=== PATIENT | male | born 1970 | race Caucasian/White ===

== ENCOUNTER 2017-06-29 13:55 | Emergency (ER) | payer OTHER ==
[~2017-06-29] VITALS: Ht 162.6 cm; Wt 59.0 kg
[~2017-06-29 13:55] MED LIST: APRESOLINE50 MG PO; ASPIR-LOW81 MG PO; COUMADIN5 MG PO; COUMADIN7.5 MG PO; GABAPENTIN300 MG PO; LANTUS 10100 UNITS/ SC; LEVEMIR FL100 UNIT/1 SC; LISINOPRIL20 MG PO; LOVENOX60 MG/0.6 SC; NOVOLOG 10100 UNITS/ SC; NOVOLOG MI100 UNIT/4 SC; PRAVASTATIN SOD40 MG PO
[2017-06-29 15:37] VITALS: BP 121/90
== END 2017-06-29 15:38 | disposition left against medical advice (07) ==
LOC: EME 13:55
DX: S91.201A Unspecified open wound of right great toe with damage to nail, initial encounter (principal); W22.8XXA Striking against or struck by other objects, initial encounter; I96 Gangrene, not elsewhere classified; R45.1 Restlessness and agitation; R30.0 Dysuria; E11.9 Type 2 diabetes mellitus without complications; I10 Essential (primary) hypertension; Z79.01 Long term (current) use of anticoagulants; Z53.20 Procedure and treatment not carried out because of patient's decision for unspecified reasons; F17.200 Nicotine dependence, unspecified, uncomplicated
CPT/HCPCS: 99281; 99284

== ENCOUNTER 2017-07-04 11:53 | Inpatient (IN) | payer OTHER ==
[~2017-07-04] VITALS: Ht 162.6 cm; Wt 59.1 kg
[2017-07-04 12:32] LABS: POINT-OF-CARE METER ID UU13113702
[2017-07-04 12:42] LABS: BASOPHIL COUNT 0.1 K/uL (0-0.1); EOSINOPHIL COUNT 0.3 K/uL (0-0.3); HEMATOCRIT 50.9 % (38.0-50.0); IMMATURE GRANULOCYTE (%) 0.4 % (0.0-0.7); IMMATURE GRANULOCYTE COUNT 0.1 K/uL; INSTRUMENT ABS NEUTROPHIL CT 9.8 K/uL; LYMPHOCYTE COUNT 2.5 K/uL (1.0-2.8); MCH 30.4 PG (29.0-34.0); MCHC 33.4 G/DL (30.0-36.0); MCV 91.1 FL (86-99); MEAN PLAT.VOLUME 10.3 uM^3 (9.0-12.4); MONOCYTE (%) 7.4 % (3-12); NEUTROPHIL (%) 71.3 % (45-76); NEUTROPHIL COUNT 9.8 K/uL (1.8-6.4); PLATELET COUNT 433 K/uL (156-360); RBC DIS.WIDTH-CV 12.2 % (11.8-14.6); RBC DIS.WIDTH-SD 40.3 % (39-53); RED BLOOD COUNT 5.59 M/uL (4.00-5.50); WHITE BLOOD COUNT 13.8 K/uL (4.1-10.2)
[2017-07-04 12:49] LABS: CHLORIDE 101 mEq/L (99-109); POTASSIUM 4.6 mEq/L (3.7-5.4); SODIUM 139 mEq/L (136-147)
[2017-07-04 12:51] LABS: GLUCOSE 213 mg/dL (70-99)
[2017-07-04 12:53] LABS: ANION GAP 15 MEQ/L (2-14); TOTAL BILIRUBIN 0.6 mg/dL (0.0-1.0)
[2017-07-04 12:55] LABS: ALKALINE PHOSPHATASE 136 IU/L (3-129); GFR ESTIMATE (CALCULATED) 49 mL/min/
[2017-07-04 12:56] LABS: UREA NITROGEN (BUN) 28 mg/dL (9-23)
[2017-07-04] MEDS ORDERED: COUMADIN1 MG PO (14:34)
[2017-07-04] MEDS ORDERED: LISINOPRIL10 MG PO (14:36)
[2017-07-04] MEDS ORDERED: NOVOLOG 10100 UNITS/ SC ×3 (14:38→14:39)
[2017-07-04] MEDS ORDERED: LANTUS 10100 UNITS/ SC (14:41)
[2017-07-04] MEDS ORDERED: TYLENOL EXTRA500 MG PO (14:42)
[2017-07-04 14:56] LABS: INTER. NORMALIZED RATIO 1.8; PROTHROMBIN TIME 20.8 SEC (10.2-12.9)
[2017-07-04 14:58] LABS: PTT 49.1 SEC (25-37)
[2017-07-04 15:52] LABS: Estimated Average Glucose 232 mg/dL (70-123); HEMOGLOBIN A1c (GLYCOHEMOGLOB) 9.7 % HGB (Below 5.7)
[2017-07-04 17:08] VITALS: BP 139/75
== END 2017-07-04 17:00 | disposition left against medical advice (07) | DRG 300 ==
LOC: EME 11:53 → EDOF 14:04 → ENRESERV 14:07 → CANRESERV 16:52 → ENRESERV 16:52 → EDOF 17:00
PROVIDERS: Emergency Medicine; Internal Medicine
DX: E11.52 Type 2 diabetes mellitus with diabetic peripheral angiopathy with gangrene (principal); I70.261 Atherosclerosis of native arteries of extremities with gangrene, right leg; L03.115 Cellulitis of right lower limb; E11.40 Type 2 diabetes mellitus with diabetic neuropathy, unspecified; N17.9 Acute kidney failure, unspecified; I77.1 Stricture of artery; J44.9 Chronic obstructive pulmonary disease, unspecified; I12.9 Hypertensive chronic kidney disease with stage 1 through stage 4 chronic kidney disease, or unspecified chronic kidney disease; N18.9 Chronic kidney disease, unspecified; E78.5 Hyperlipidemia, unspecified; F17.200 Nicotine dependence, unspecified, uncomplicated; Z79.4 Long term (current) use of insulin; Z86.73 Personal history of transient ischemic attack (TIA), and cerebral infarction without residual deficits; Z79.01 Long term (current) use of anticoagulants
CPT/HCPCS: 73630; 80053; 82948; 83036; 83605; 85025; 85610; 85730; 87040; 87070; 87075; 87205; 93926; 99281; 99285; J2543; J7030

== ENCOUNTER 2017-08-31 16:40 | Inpatient (IN) | payer OTHER ==
[~2017-08-31] VITALS: Ht 162.6 cm; Wt 52.1 kg
[~2017-08-31 16:40] MED LIST changes: -COUMADIN5 MG PO
[2017-08-31 17:48] LABS: HEMATOCRIT 32.3 % (38.0-50.0); HEMOGLOBIN 10.8 G/DL (12.5-16.6); MCH 28.6 PG (29.0-34.0); MCHC 33.4 G/DL (30.0-36.0); MCV 85.7 FL (86-99); PLATELET COUNT 713 K/uL (156-360); RBC DIS.WIDTH-CV 12.2 % (11.8-14.6); RED BLOOD COUNT 3.77 M/uL (4.00-5.50); WHITE BLOOD COUNT 24.1 K/uL (4.1-10.2)
[2017-08-31 17:50] LABS: CARBON DIOXIDE (BICARBONATE) 28.6 MEQ/L (20-31)
[2017-08-31 17:57] LABS: ALBUMIN 3.3 g/dL (3.2-4.8); CHLORIDE 96 mEq/L (99-109); POTASSIUM 5.7 mEq/L (3.7-5.4); SODIUM 132 mEq/L (136-147)
[2017-08-31 17:59] LABS: GLUCOSE 295 mg/dL (70-99)
[2017-08-31 18:00] LABS: TOTAL PROTEIN 7.8 g/dL (6.4-8.3)
[2017-08-31 18:01] LABS: TOTAL BILIRUBIN 0.2 mg/dL (0.0-1.0)
[2017-08-31 18:03] LABS: ALKALINE PHOSPHATASE 148 IU/L (3-129); CREATININE 1.4 mg/dL (0.6-1.3); GFR ESTIMATE (CALCULATED) 57 mL/min/ (58.99-99999)
[2017-08-31 18:04] LABS: UREA NITROGEN (BUN) 42 mg/dL (9-23)
[2017-08-31 18:05] LABS: AST (GOT) 18 IU/L (2-34)
[2017-08-31 18:06] LABS: ALT (GPT) 11 IU/L (3-49)
[2017-08-31] MEDS ORDERED: COUMADIN5 MG PO (21:10)
[2017-08-31] MEDS ORDERED: TYLENOL EXTRA500 MG PO (21:11)
[2017-08-31] MEDS ORDERED: LANTUS 10100 UNITS/ SC (21:11)
[2017-08-31] MEDS ORDERED: NOVOLOG 10100 UNITS/ SC ×2 (21:11)
[2017-08-31] MEDS ORDERED: LISINOPRIL10 MG PO (21:11)
[2017-08-31] MEDS ORDERED: COUMADIN7.5 MG PO (21:11)
[2017-08-31] MEDS ORDERED: GABAPENTIN300 MG PO (21:12)
[2017-09-01 00:31] VITALS: BP 150/67
[2017-09-01 01:07] LABS: INTER. NORMALIZED RATIO 5.7
[2017-09-01 05:34] LABS: BASOPHIL (%) 0.3 % (0-1); BASOPHIL COUNT 0.1 K/uL (0-0.1); EOSINOPHIL (%) 0.3 % (0-5); EOSINOPHIL COUNT 0.1 K/uL (0-0.3); HEMATOCRIT 27.8 % (38.0-50.0); HEMOGLOBIN 9.3 G/DL (12.5-16.6); IMMATURE GRANULOCYTE (%) 0.7 % (0.0-0.7); LYMPHOCYTE (%) 12.3 % (15-42); LYMPHOCYTE COUNT 2.6 K/uL (1.0-2.8); MCH 28.8 PG (29.0-34.0); MCHC 33.5 G/DL (30.0-36.0); MCV 86.1 FL (86-99); MONOCYTE (%) 5.7 % (3-12); MONOCYTE COUNT 1.2 K/uL (0-0.8); NEUTROPHIL (%) 80.7 % (45-76); NEUTROPHIL COUNT 17.3 K/uL (1.8-6.4); PLATELET COUNT 619 K/uL (156-360); RBC DIS.WIDTH-CV 12.1 % (11.8-14.6); RBC DIS.WIDTH-SD 38.2 % (39-53); RED BLOOD COUNT 3.23 M/uL (4.00-5.50); WHITE BLOOD COUNT 21.4 K/uL (4.1-10.2)
[2017-09-01 05:47] LABS: INTER. NORMALIZED RATIO 5.5
[2017-09-01 05:58] LABS: CHLORIDE 99 MEQ/L (99-109); CREATININE 1.2 MG/DL (0.6-1.3); GFR ESTIMATE (CALCULATED) > 59 mL/min/ (58.99-99999); GLUCOSE 271 mg/dL (70-99); POTASSIUM 4.6 MEQ/L (3.7-5.4); SODIUM 129 MEQ/L (136-147); UREA NITROGEN (BUN) 36 mg/dL (9-23)
[2017-09-01 08:00] VITALS: BP 116/60
[2017-09-01 16:13] VITALS: BP 137/62
[2017-09-01 17:52] LABS: CHLORIDE 94 MEQ/L (99-109); CREATININE 1.3 MG/DL (0.6-1.3); GFR ESTIMATE (CALCULATED) > 59 mL/min/ (58.99-99999); POTASSIUM 4.9 MEQ/L (3.7-5.4); SODIUM 127 MEQ/L (136-147); UREA NITROGEN (BUN) 33 mg/dL (9-23)
[2017-09-01 17:56] LABS: GLUCOSE 525 mg/dL (70-99)
[2017-09-01 22:10] VITALS: BP 142/65
[2017-09-01 22:26] VITALS: BP 111/54
[2017-09-01 23:24] VITALS: BP 132/61
[2017-09-02] VITALS (7 sets, daily range): BP systolic 120–137; BP diastolic 58–84
[2017-09-02 06:20] LABS: BASOPHIL (%) 0.3 % (0-1); BASOPHIL COUNT 0.1 K/uL (0-0.1); EOSINOPHIL (%) 0.4 % (0-5); EOSINOPHIL COUNT 0.1 K/uL (0-0.3); HEMATOCRIT 25.2 % (38.0-50.0); HEMOGLOBIN 8.5 G/DL (12.5-16.6); IMMATURE GRANULOCYTE (%) 0.8 % (0.0-0.7); LYMPHOCYTE COUNT 2.2 K/uL (1.0-2.8); MCH 28.8 PG (29.0-34.0); MCHC 33.7 G/DL (30.0-36.0); MCV 85.4 FL (86-99); MONOCYTE (%) 5.5 % (3-12); MONOCYTE COUNT 1.2 K/uL (0-0.8); NEUTROPHIL COUNT 18.7 K/uL (1.8-6.4); PLATELET COUNT 572 K/uL (156-360); RBC DIS.WIDTH-SD 37.3 % (39-53); RED BLOOD COUNT 2.95 M/uL (4.00-5.50); WHITE BLOOD COUNT 22.5 K/uL (4.1-10.2)
[2017-09-02 06:46] LABS: INTER. NORMALIZED RATIO 1.8
[2017-09-02 06:56] LABS: CHLORIDE 99 MEQ/L (99-109); GFR ESTIMATE (CALCULATED) > 59 mL/min/ (58.99-99999); POTASSIUM 4.2 MEQ/L (3.7-5.4); SODIUM 133 MEQ/L (136-147); UREA NITROGEN (BUN) 25 mg/dL (9-23)
[2017-09-02 07:00] LABS: GLUCOSE 114 mg/dL (70-99)
[2017-09-02 12:03] LABS: HEMOGLOBIN 7.9 G/DL (12.5-16.6); MCH 28.4 PG (29.0-34.0); MCHC 32.9 G/DL (30.0-36.0); MCV 86.3 FL (86-99); PLATELET COUNT 559 K/uL (156-360); RBC DIS.WIDTH-CV 12.1 % (11.8-14.6); RBC DIS.WIDTH-SD 38.7 % (39-53); RED BLOOD COUNT 2.78 M/uL (4.00-5.50); WHITE BLOOD COUNT 22.8 K/uL (4.1-10.2)
[2017-09-02 12:23] LABS: CHLORIDE 99 MEQ/L (99-109); POTASSIUM 4.1 MEQ/L (3.7-5.4); SODIUM 131 MEQ/L (136-147); TROP-I INTERPRETATION NEGATIVE; TROPONIN-I 0.03 ng/mL (0.0-0.30)
[2017-09-02 12:30] LABS: GFR ESTIMATE (CALCULATED) > 59 mL/min/ (58.99-99999); GLUCOSE 118 mg/dL (70-99); UREA NITROGEN (BUN) 22 mg/dL (9-23)
[2017-09-03 06:42] LABS: HEMATOCRIT 28.9 % (38.0-50.0); HEMOGLOBIN 9.3 G/DL (12.5-16.6); MCH 28.4 PG (29.0-34.0); MCHC 32.2 G/DL (30.0-36.0); MCV 88.4 FL (86-99); PLATELET COUNT 637 K/uL (156-360); RBC DIS.WIDTH-CV 12.2 % (11.8-14.6); RBC DIS.WIDTH-SD 39.6 % (39-53); RED BLOOD COUNT 3.27 M/uL (4.00-5.50); RETIC HGB EQUIVALENT 27.3 (28-36); RETICULOCYTE COUNT 1.4 % (0.5-1.8); WHITE BLOOD COUNT 9.7 K/uL (4.1-10.2)
[2017-09-03 06:54] LABS: INTER. NORMALIZED RATIO 1.4
[2017-09-03 06:55] LABS: TROP-I INTERPRETATION NEGATIVE; TROPONIN-I 0.01 ng/mL (0.0-0.30)
[2017-09-03 07:10] LABS: CHLORIDE 100 MEQ/L (99-109); POTASSIUM 3.9 MEQ/L (3.7-5.4); SODIUM 134 MEQ/L (136-147)
[2017-09-03 07:28] VITALS: BP 123/57
[2017-09-03 07:51] LABS: CREATININE 1.1 MG/DL (0.6-1.3); GFR ESTIMATE (CALCULATED) > 59 mL/min/ (58.99-99999); UREA NITROGEN (BUN) 20 mg/dL (9-23)
[2017-09-03 08:00] LABS: GLUCOSE 87 mg/dL (70-99)
[2017-09-03 08:29] LABS: FOLIC ACID (FOLATE) 6.2 NG/ML (5.0-22.0)
[2017-09-03 08:32] LABS: FERRITIN 431 NG/ML (22-322)
[2017-09-03 15:21] VITALS: BP 129/60
[2017-09-04] VITALS: BP 142/57
[2017-09-04 06:22] LABS: INTER. NORMALIZED RATIO 1.4
[2017-09-04 09:30] VITALS: BP 130/71
[2017-09-04 16:14] VITALS: BP 146/66
[2017-09-05 00:23] VITALS: BP 158/70
[2017-09-05 00:48] LABS: GLUCOSE 466 mg/dL (70-99)
[2017-09-05 05:25] VITALS: BP 126/60
[2017-09-05 06:02] LABS: BASOPHIL (%) 0.6 % (0-1); BASOPHIL COUNT 0.1 K/uL (0-0.1); EOSINOPHIL (%) 1.9 % (0-5); EOSINOPHIL COUNT 0.2 K/uL (0-0.3); HEMATOCRIT 26.4 % (38.0-50.0); HEMOGLOBIN 8.3 G/DL (12.5-16.6); IMMATURE GRANULOCYTE (%) 0.6 % (0.0-0.7); LYMPHOCYTE (%) 15.2 % (15-42); LYMPHOCYTE COUNT 1.9 K/uL (1.0-2.8); MCH 27.5 PG (29.0-34.0); MCHC 31.4 G/DL (30.0-36.0); MCV 87.4 FL (86-99); MONOCYTE (%) 7.7 % (3-12); MONOCYTE COUNT 0.9 K/uL (0-0.8); NEUTROPHIL COUNT 9.1 K/uL (1.8-6.4); PLATELET COUNT 668 K/uL (156-360); RBC DIS.WIDTH-CV 12.1 % (11.8-14.6); RBC DIS.WIDTH-SD 39.1 % (39-53); RED BLOOD COUNT 3.02 M/uL (4.00-5.50); WHITE BLOOD COUNT 12.2 K/uL (4.1-10.2)
[2017-09-05 06:25] LABS: INTER. NORMALIZED RATIO 1.8
[2017-09-05 06:28] LABS: CHLORIDE 99 MEQ/L (99-109); CREATININE 1.2 MG/DL (0.6-1.3); GFR ESTIMATE (CALCULATED) > 59 mL/min/ (58.99-99999); GLUCOSE 243 mg/dL (70-99); POTASSIUM 4.3 MEQ/L (3.7-5.4); SODIUM 133 MEQ/L (136-147); UREA NITROGEN (BUN) 19 mg/dL (9-23)
[2017-09-05 08:10] VITALS: BP 140/67
[2017-09-05 16:56] VITALS: BP 144/66
[2017-09-05 20:25] VITALS: BP 185/78
[2017-09-05 23:35] VITALS: BP 133/60
[2017-09-06 03:50] VITALS: BP 134/65
[2017-09-06 07:21] LABS: INTER. NORMALIZED RATIO 2.2
[2017-09-06 07:50] VITALS: BP 138/72
[2017-09-06 11:20] VITALS: BP 130/74
[2017-09-06 12:43] LABS: Flow Number of Markers 22 (()); Flow Spec Viability 96 % (()); Flow Specimen Type PERIPHERAL BLOOD (())
[2017-09-06 15:02] VITALS: BP 128/68
[2017-09-06 20:33] LABS: JAK2 Mutation Result NOT DETECTED (())
[2017-09-06 21:04] LABS: JAK2 Exon 12 Mutation NOT DETECTED (())
[2017-09-06 23:54] VITALS: BP 130/63
[2017-09-07 06:04] LABS: INTER. NORMALIZED RATIO 2.7
[2017-09-07 06:07] LABS: HEMATOCRIT 24.9 % (38.0-50.0); HEMOGLOBIN 7.9 G/DL (12.5-16.6); MCH 27.9 PG (29.0-34.0); MCHC 31.7 G/DL (30.0-36.0); PLATELET COUNT 688 K/uL (156-360); RBC DIS.WIDTH-CV 12.5 % (11.8-14.6); RED BLOOD COUNT 2.83 M/uL (4.00-5.50)
[2017-09-07 06:26] LABS: CHLORIDE 99 MEQ/L (99-109); GFR ESTIMATE (CALCULATED) > 59 mL/min/ (58.99-99999); SODIUM 134 MEQ/L (136-147); UREA NITROGEN (BUN) 21 mg/dL (9-23)
[2017-09-07 06:27] LABS: GLUCOSE 78 mg/dL (70-99)
[2017-09-07 07:47] VITALS: BP 140/65
[2017-09-07 08:29] VITALS: BP 141/66
[2017-09-07] MEDS ORDERED: COUMADIN2 MG PO (10:41)
[2017-09-07] MEDS ORDERED: CYCLOBENZAPRINE10 MG PO (10:41)
[2017-09-07] MEDS ORDERED: HYDROCODON-ACE1 EAC9 PO (10:41)
[2017-09-07 15:35] VITALS: BP 119/57
[2017-09-07 21:00] VITALS: BP 130/63
[2017-09-07 23:31] VITALS: BP 135/60
[2017-09-08 04:47] VITALS: BP 152/70
[2017-09-08 05:33] LABS: INTER. NORMALIZED RATIO 2.9
[2017-09-08 08:08] VITALS: BP 147/65
[2017-09-08 16:30] VITALS: BP 130/64
[2017-09-08 23:39] VITALS: BP 127/68
[2017-09-09 06:40] LABS: HEMATOCRIT 27.8 % (38.0-50.0); HEMOGLOBIN 8.6 G/DL (12.5-16.6); MCH 27.5 PG (29.0-34.0); MCHC 30.9 G/DL (30.0-36.0); MCV 88.8 FL (86-99); PLATELET COUNT 875 K/uL (156-360); RBC DIS.WIDTH-CV 12.8 % (11.8-14.6); RBC DIS.WIDTH-SD 41.6 % (39-53); RED BLOOD COUNT 3.13 M/uL (4.00-5.50)
[2017-09-09 06:44] LABS: INTER. NORMALIZED RATIO 2.9
[2017-09-09 07:12] LABS: CHLORIDE 99 MEQ/L (99-109); GFR ESTIMATE (CALCULATED) > 59 mL/min/ (58.99-99999); SODIUM 135 MEQ/L (136-147); UREA NITROGEN (BUN) 26 mg/dL (9-23)
[2017-09-09 07:44] LABS: GLUCOSE 50 mg/dL (70-99); POTASSIUM 5.2 MEQ/L (3.7-5.4)
[2017-09-09 08:55] VITALS: BP 162/67
[2017-09-09 11:40] VITALS: BP 145/64
[2017-09-09 12:25] VITALS: BP 150/70
[2017-09-09] MEDS ORDERED: COUMADIN2.5 MG PO (15:59)
[2017-09-09 16:08] VITALS: BP 128/60
[2017-09-09 16:20] VITALS: BP 128/60
[2017-09-10 13:48] LABS: HEMOGLOBIN A1c (GLYCOHEMOGLOB) 12.5 % (Below 5.7)
== END 2017-09-09 18:39 | DRG 617 ==
LOC: EME 16:40 → 5SOUTH 20:35 → EDOF 20:35 → ENRESERV 20:38 → 5SOUTH 23:25 → ENRESERV 09-05 04:47 → 3EAST 09-05 05:19
PROVIDERS: Emergency Medicine; Hospitalist; Internal Medicine; Internal Medicine Hematology & Oncology; Surgery
PROC: 30233K1 Transfusion of Nonautologous Frozen Plasma into Peripheral Vein, Percutaneous Approach (ICD-10-PCS; principal; 2017-09-01)
PROC: 0Y6H0Z1 Detachment at Right Lower Leg, High, Open Approach (ICD-10-PCS; 2017-09-02)
DX: E11.69 Type 2 diabetes mellitus with other specified complication (principal); M86.9 Osteomyelitis, unspecified; E11.52 Type 2 diabetes mellitus with diabetic peripheral angiopathy with gangrene; I70.261 Atherosclerosis of native arteries of extremities with gangrene, right leg; N17.9 Acute kidney failure, unspecified; E87.1 Hypo-osmolality and hyponatremia; E87.5 Hyperkalemia; E11.40 Type 2 diabetes mellitus with diabetic neuropathy, unspecified; L03.115 Cellulitis of right lower limb; R79.89 Other specified abnormal findings of blood chemistry; D50.9 Iron deficiency anemia, unspecified; G89.18 Other acute postprocedural pain; M62.838 Other muscle spasm; I10 Essential (primary) hypertension; E78.5 Hyperlipidemia, unspecified; K21.9 Gastro-esophageal reflux disease without esophagitis; R41.89 Other symptoms and signs involving cognitive functions and awareness; F43.20 Adjustment disorder, unspecified; F17.210 Nicotine dependence, cigarettes, uncomplicated; Z79.01 Long term (current) use of anticoagulants; Z79.4 Long term (current) use of insulin; Z86.73 Personal history of transient ischemic attack (TIA), and cerebral infarction without residual deficits; Z91.19 Patient's noncompliance with other medical treatment and regimen; Z83.3 Family history of diabetes mellitus
CPT/HCPCS: 73630; 80048; 80048 91; 80053; 80202; 81206 90; 81270 90; 82010; 82607; 82728; 82746; 82803; 82948; 83036; 83605; 84484; 84999; 85025; 85027; 85046; 85610; 86850; 86900; 86901; 86920; 87040; 88307; 88311; 93005; 94799; 97530 GP; 99281; 99285; J0330; J0690; J0692; J1170; J1815; J2405; J2543; J3010; J3370; J7030; J7050; P9017; Q0138

== ENCOUNTER 2017-10-10 20:25 | Inpatient (IN) | payer OTHER ==
[~2017-10-10] VITALS: Ht 162.6 cm; Wt 60.2 kg
[~2017-10-10 20:25] MED LIST changes: +COUMADIN2 MG PO; +COUMADIN2.5 MG PO; +COUMADIN5 MG PO; +CYCLOBENZAPRINE10 MG PO; +HYDROCODON-ACE1 EAC9 PO; +LISINOPRIL10 MG PO; +TYLENOL EXTRA500 MG PO
[2017-10-10 21:55] LABS: HEMOGLOBIN 10.3 G/DL (12.5-16.6); MCH 28.7 PG (29.0-34.0); MCHC 32.2 G/DL (30.0-36.0); MCV 89.1 FL (86-99); PLATELET COUNT 762 K/uL (156-360); RBC DIS.WIDTH-CV 16.8 % (11.8-14.6); RBC DIS.WIDTH-SD 55.7 % (39-53); RED BLOOD COUNT 3.59 M/uL (4.00-5.50); WHITE BLOOD COUNT 17.5 K/uL (4.1-10.2)
[2017-10-10 22:02] LABS: PTT 63.2 SEC (25-37)
[2017-10-10 22:17] LABS: ALBUMIN 3.5 g/dL (3.2-4.8); CHLORIDE 95 mEq/L (99-109); SODIUM 126 mEq/L (136-147)
[2017-10-10 22:19] LABS: TOTAL BILIRUBIN 0.1 mg/dL (0.0-1.0)
[2017-10-10 22:20] LABS: ALKALINE PHOSPHATASE 214 IU/L (3-129)
[2017-10-10 22:21] LABS: CREATININE 1.9 mg/dL (0.6-1.3); GFR ESTIMATE (CALCULATED) 40 mL/min/ (58.99-99999)
[2017-10-10 22:22] LABS: AST (GOT) 10 IU/L (2-34); UREA NITROGEN (BUN) 46 mg/dL (9-23)
[2017-10-10 22:23] LABS: ALT (GPT) 11 IU/L (3-49)
[2017-10-10 22:30] LABS: GLUCOSE 533 mg/dL (70-99); LIPASE 51 U/L (1.0-51.0); POTASSIUM 6.3 mEq/L (3.7-5.4)
[2017-10-10 22:37] LABS: TROP-I INTERPRETATION NEGATIVE; TROPONIN-I < 0.01 ng/mL (0.0-0.30)
[2017-10-10 22:54] LABS: MAGNESIUM 2.2 mg/dL (1.3-2.7)
[2017-10-11] VITALS (10 sets, daily range): BP systolic 95–143; BP diastolic 51–80
[2017-10-11 01:59] LABS: BASE EXCESS -6.1 mEq/L (-3 to +3); BICARBONATE 18.5 mEq/L (22-26); CARBOXY HGB 2.7 % (0-5); COMMENTS - BLOOD GASES C+; FI02 21 %; METHEMOGLOBIN 0.9 % (0-1.5); PCO2 32 mm Hg (35-45); PO2 81 mm Hg (80-100); SITE LR; pH 7.37 (7.35-7.45)
[2017-10-11 06:01] LABS: CHLORIDE 105 mEq/L (99-109); GLUCOSE 233 mg/dL (70-99); POTASSIUM 4.8 mEq/L (3.7-5.4); SODIUM 133 mEq/L (136-147)
[2017-10-11 06:04] LABS: CREATININE 1.5 mg/dL (0.6-1.3); GFR ESTIMATE (CALCULATED) 53 mL/min/ (58.99-99999)
[2017-10-11 06:05] LABS: UREA NITROGEN (BUN) 39 mg/dL (9-23)
[2017-10-11 10:22] LABS: HEMATOCRIT 27.2 % (38.0-50.0); HEMOGLOBIN 8.7 G/DL (12.5-16.6); MCH 28.7 PG (29.0-34.0); MCV 89.8 FL (86-99); PLATELET COUNT 558 K/uL (156-360); RBC DIS.WIDTH-CV 16.8 % (11.8-14.6); RBC DIS.WIDTH-SD 54.8 % (39-53); RED BLOOD COUNT 3.03 M/uL (4.00-5.50); WHITE BLOOD COUNT 13.6 K/uL (4.1-10.2)
[2017-10-11 21:36] LABS: HEMOGLOBIN 8.2 G/DL (12.5-16.6); MCH 28.3 PG (29.0-34.0); MCHC 31.5 G/DL (30.0-36.0); MCV 89.7 FL (86-99); PLATELET COUNT 666 K/uL (156-360); RBC DIS.WIDTH-CV 16.7 % (11.8-14.6); RBC DIS.WIDTH-SD 54.8 % (39-53); WHITE BLOOD COUNT 13.7 K/uL (4.1-10.2)
[2017-10-11 21:58] LABS: TROP-I INTERPRETATION NEGATIVE; TROPONIN-I < 0.01 ng/mL (0.0-0.30)
[2017-10-11 23:07] LABS: CREATININE 1.1 MG/DL (0.6-1.3); GFR ESTIMATE (CALCULATED) > 59 mL/min/ (58.99-99999); GLUCOSE 249 mg/dL (70-99); UREA NITROGEN (BUN) 24 mg/dL (9-23)
[2017-10-12 01:13] LABS: CHLORIDE 104 MEQ/L (99-109); SODIUM 132 MEQ/L (136-147)
[2017-10-12 07:30] VITALS: BP 140/58
[2017-10-12 07:42] LABS: BASOPHIL (%) 0.7 % (0-1); BASOPHIL COUNT 0.1 K/uL (0-0.1); EOSINOPHIL (%) 3.2 % (0-5); EOSINOPHIL COUNT 0.4 K/uL (0-0.3); IMMATURE GRANULOCYTE (%) 0.5 % (0.0-0.7); LYMPHOCYTE (%) 20.9 % (15-42); LYMPHOCYTE COUNT 2.4 K/uL (1.0-2.8); MCH 28.3 PG (29.0-34.0); MCHC 30.8 G/DL (30.0-36.0); MCV 91.9 FL (86-99); MONOCYTE COUNT 0.8 K/uL (0-0.8); NEUTROPHIL (%) 67.7 % (45-76); NEUTROPHIL COUNT 7.8 K/uL (1.8-6.4); PLATELET COUNT 642 K/uL (156-360); RBC DIS.WIDTH-CV 16.7 % (11.8-14.6); RBC DIS.WIDTH-SD 57.1 % (39-53); RED BLOOD COUNT 2.83 M/uL (4.00-5.50); WHITE BLOOD COUNT 11.6 K/uL (4.1-10.2)
[2017-10-12 09:54] LABS: TROP-I INTERPRETATION NEGATIVE; TROPONIN-I < 0.01 ng/mL (0.0-0.30)
[2017-10-12 10:28] LABS: CHLORIDE 105 MEQ/L (99-109); CREATININE 1.3 MG/DL (0.6-1.3); GFR ESTIMATE (CALCULATED) > 59 mL/min/ (58.99-99999); GLUCOSE 219 mg/dL (70-99); POTASSIUM 5.2 MEQ/L (3.7-5.4); SODIUM 136 MEQ/L (136-147); UREA NITROGEN (BUN) 21 mg/dL (9-23)
[2017-10-12 10:49] LABS: VANCOMYCIN, TROUGH 6.2 MCG/ML (10-20)
[2017-10-12 11:17] VITALS: BP 110/60
[2017-10-12 15:52] VITALS: BP 142/78
[2017-10-12 16:43] LABS: INTER. NORMALIZED RATIO 1.5
[2017-10-12 20:07] VITALS: BP 118/62
[2017-10-12 23:51] VITALS: BP 131/60
[2017-10-13 04:09] VITALS: BP 132/62
[2017-10-13 07:19] VITALS: BP 120/60
[2017-10-13 08:22] LABS: INTER. NORMALIZED RATIO 1.7
[2017-10-13 09:06] LABS: BASOPHIL (%) 0.5 % (0-1); BASOPHIL COUNT 0.1 K/uL (0-0.1); EOSINOPHIL (%) 3.6 % (0-5); EOSINOPHIL COUNT 0.4 K/uL (0-0.3); HEMATOCRIT 24.1 % (38.0-50.0); HEMOGLOBIN 7.6 G/DL (12.5-16.6); IMMATURE GRANULOCYTE (%) 0.7 % (0.0-0.7); LYMPHOCYTE COUNT 2.5 K/uL (1.0-2.8); MCH 28.3 PG (29.0-34.0); MCHC 31.5 G/DL (30.0-36.0); MCV 89.6 FL (86-99); MONOCYTE (%) 5.5 % (3-12); MONOCYTE COUNT 0.7 K/uL (0-0.8); NEUTROPHIL (%) 68.7 % (45-76); NEUTROPHIL COUNT 8.1 K/uL (1.8-6.4); PLATELET COUNT 658 K/uL (156-360); RBC DIS.WIDTH-CV 16.7 % (11.8-14.6); RED BLOOD COUNT 2.69 M/uL (4.00-5.50); WHITE BLOOD COUNT 11.8 K/uL (4.1-10.2)
[2017-10-13 10:32] LABS: MAGNESIUM 1.8 mg/dl (1.3-2.7); PHOSPHORUS 3.4 mg/dL (2.5-4.9)
[2017-10-13 11:09] VITALS: BP 140/64
[2017-10-13 16:00] VITALS: BP 132/74
[2017-10-13 19:48] VITALS: BP 135/67
[2017-10-13 23:40] VITALS: BP 133/71
[2017-10-14 03:44] VITALS: BP 147/71
[2017-10-14 06:44] LABS: BASOPHIL (%) 0.4 % (0-1); BASOPHIL COUNT 0.1 K/uL (0-0.1); EOSINOPHIL (%) 2.6 % (0-5); EOSINOPHIL COUNT 0.3 K/uL (0-0.3); HEMATOCRIT 24.6 % (38.0-50.0); HEMOGLOBIN 7.8 G/DL (12.5-16.6); IMMATURE GRANULOCYTE (%) 0.4 % (0.0-0.7); LYMPHOCYTE (%) 19.2 % (15-42); LYMPHOCYTE COUNT 2.2 K/uL (1.0-2.8); MCH 27.9 PG (29.0-34.0); MCHC 31.7 G/DL (30.0-36.0); MCV 87.9 FL (86-99); MONOCYTE (%) 6.2 % (3-12); MONOCYTE COUNT 0.7 K/uL (0-0.8); NEUTROPHIL (%) 71.2 % (45-76); NEUTROPHIL COUNT 8.1 K/uL (1.8-6.4); PLATELET COUNT 668 K/uL (156-360); RBC DIS.WIDTH-CV 16.1 % (11.8-14.6); RBC DIS.WIDTH-SD 52.2 % (39-53); WHITE BLOOD COUNT 11.5 K/uL (4.1-10.2)
[2017-10-14 07:09] VITALS: BP 140/68
[2017-10-14 14:58] VITALS: BP 147/73
[2017-10-14 23:58] VITALS: BP 139/67
[2017-10-15 05:55] LABS: BASOPHIL (%) 0.3 % (0-1); EOSINOPHIL (%) 2.6 % (0-5); EOSINOPHIL COUNT 0.2 K/uL (0-0.3); HEMATOCRIT 25.5 % (38.0-50.0); IMMATURE GRANULOCYTE (%) 0.4 % (0.0-0.7); LYMPHOCYTE (%) 25.6 % (15-42); LYMPHOCYTE COUNT 2.4 K/uL (1.0-2.8); MCH 27.5 PG (29.0-34.0); MCHC 31.4 G/DL (30.0-36.0); MCV 87.6 FL (86-99); MONOCYTE (%) 6.3 % (3-12); MONOCYTE COUNT 0.6 K/uL (0-0.8); NEUTROPHIL (%) 64.8 % (45-76); PLATELET COUNT 761 K/uL (156-360); RBC DIS.WIDTH-CV 16.2 % (11.8-14.6); RBC DIS.WIDTH-SD 52.3 % (39-53); RED BLOOD COUNT 2.91 M/uL (4.00-5.50); WHITE BLOOD COUNT 9.3 K/uL (4.1-10.2)
[2017-10-15 06:07] LABS: INTER. NORMALIZED RATIO 1.9
[2017-10-15 06:20] LABS: CHLORIDE 101 MEQ/L (99-109); CREATININE 1.1 MG/DL (0.6-1.3); GFR ESTIMATE (CALCULATED) > 59 mL/min/ (58.99-99999); GLUCOSE 164 mg/dL (70-99); POTASSIUM 4.4 MEQ/L (3.7-5.4); SODIUM 135 MEQ/L (136-147); UREA NITROGEN (BUN) 16 mg/dL (9-23)
[2017-10-15 07:04] VITALS: BP 133/69
[2017-10-15 15:00] VITALS: BP 141/74
[2017-10-15 15:48] LABS: APPEARANCE CLEAR ((CLEAR)); BILIRUBIN NEGATIVE; BLOOD SMALL; COLOR YELLOW ((YELLOW)); GLUCOSE (STRIP) >=500; KETONES NEGATIVE; LEUKOCYTES NEGATIVE; NITRITE NEGATIVE; PROTEIN (STRIP) NEGATIVE; SPECIFIC GRAVITY 1.007 (1.000-1.030); UROBILINOGEN 0.2 MG/DL (0.2-1.0)
[2017-10-15 15:55] LABS: BACTERIA NONE SEEN /HPF; EPITHELIAL CELLS RARE /HPF; MUCUS TRACE /LPF; RED BLOOD CELLS 0-5 /HPF (0-5); UCUL ADDED? YES
[2017-10-15 23:51] VITALS: BP 181/84
[2017-10-16 06:49] LABS: BASOPHIL (%) 0.4 % (0-1); EOSINOPHIL COUNT 0.2 K/uL (0-0.3); HEMATOCRIT 25.5 % (38.0-50.0); HEMOGLOBIN 7.9 G/DL (12.5-16.6); IMMATURE GRANULOCYTE (%) 0.3 % (0.0-0.7); LYMPHOCYTE (%) 40.2 % (15-42); MCH 27.4 PG (29.0-34.0); MCV 88.5 FL (86-99); MONOCYTE (%) 8.1 % (3-12); MONOCYTE COUNT 0.6 K/uL (0-0.8); NEUTROPHIL COUNT 3.6 K/uL (1.8-6.4); PLATELET COUNT 777 K/uL (156-360); RBC DIS.WIDTH-CV 16.5 % (11.8-14.6); RBC DIS.WIDTH-SD 53.7 % (39-53); RED BLOOD COUNT 2.88 M/uL (4.00-5.50); WHITE BLOOD COUNT 7.4 K/uL (4.1-10.2)
[2017-10-16 07:20] LABS: CHLORIDE 103 MEQ/L (99-109); GFR ESTIMATE (CALCULATED) > 59 mL/min/ (58.99-99999); POTASSIUM 4.8 MEQ/L (3.7-5.4); SODIUM 138 MEQ/L (136-147); UREA NITROGEN (BUN) 17 mg/dL (9-23)
[2017-10-16 07:21] LABS: GLUCOSE 81 mg/dL (70-99)
[2017-10-16 08:04] VITALS: BP 156/88
[2017-10-16 16:16] VITALS: BP 157/75
[2017-10-17 06:59] LABS: INTER. NORMALIZED RATIO 1.9
[2017-10-17 07:53] VITALS: BP 168/78
[2017-10-17 15:45] VITALS: BP 141/75
[2017-10-17 23:45] VITALS: BP 124/59
[2017-10-18 07:01] VITALS: BP 106/54
[2017-10-18 08:32] LABS: BASOPHIL (%) 0.5 % (0-1); BASOPHIL COUNT 0.1 K/uL (0-0.1); EOSINOPHIL COUNT 0.2 K/uL (0-0.3); HEMATOCRIT 25.9 % (38.0-50.0); HEMOGLOBIN 8.2 G/DL (12.5-16.6); IMMATURE GRANULOCYTE (%) 0.6 % (0.0-0.7); LYMPHOCYTE (%) 30.4 % (15-42); LYMPHOCYTE COUNT 3.1 K/uL (1.0-2.8); MCH 28.1 PG (29.0-34.0); MCHC 31.7 G/DL (30.0-36.0); MCV 88.7 FL (86-99); MONOCYTE (%) 7.8 % (3-12); MONOCYTE COUNT 0.8 K/uL (0-0.8); NEUTROPHIL (%) 58.7 % (45-76); PLATELET COUNT 787 K/uL (156-360); RBC DIS.WIDTH-CV 16.8 % (11.8-14.6); RBC DIS.WIDTH-SD 53.9 % (39-53); RED BLOOD COUNT 2.92 M/uL (4.00-5.50); WHITE BLOOD COUNT 10.2 K/uL (4.1-10.2)
[2017-10-18 08:47] LABS: CHLORIDE 95 MEQ/L (99-109); CREATININE 1.1 MG/DL (0.6-1.3); GFR ESTIMATE (CALCULATED) > 59 mL/min/ (58.99-99999); MAGNESIUM 2.1 mg/dl (1.3-2.7); POTASSIUM 5.1 MEQ/L (3.7-5.4)
[2017-10-18 08:49] LABS: GLUCOSE 234 mg/dL (70-99); SODIUM 130 MEQ/L (136-147); UREA NITROGEN (BUN) 33 mg/dL (9-23)
[2017-10-18 09:25] VITALS: BP 110/60
[2017-10-18 15:08] VITALS: BP 113/59
[2017-10-19] VITALS: BP 126/56
[2017-10-19 07:58] LABS: CHLORIDE 97 MEQ/L (99-109); GFR ESTIMATE (CALCULATED) 49 mL/min/ (58.99-99999); POTASSIUM 5.6 MEQ/L (3.7-5.4); SODIUM 134 MEQ/L (136-147)
[2017-10-19 08:10] LABS: CREATININE 1.6 MG/DL (0.6-1.3); GLUCOSE 62 mg/dL (70-99); UREA NITROGEN (BUN) 50 mg/dL (9-23)
[2017-10-19 23:33] VITALS: BP 131/71
[2017-10-20 06:48] LABS: HEMATOCRIT 29.4 % (38.0-50.0); HEMOGLOBIN 9.1 G/DL (12.5-16.6); MCV 90.5 FL (86-99); PLATELET COUNT 804 K/uL (156-360); RBC DIS.WIDTH-SD 55.6 % (39-53); RED BLOOD COUNT 3.25 M/uL (4.00-5.50); WHITE BLOOD COUNT 8.9 K/uL (4.1-10.2)
[2017-10-20 07:17] LABS: CHLORIDE 96 MEQ/L (99-109); CREATININE 1.1 MG/DL (0.6-1.3); GFR ESTIMATE (CALCULATED) > 59 mL/min/ (58.99-99999); GLUCOSE 224 mg/dL (70-99); POTASSIUM 5.3 MEQ/L (3.7-5.4); SODIUM 132 MEQ/L (136-147); UREA NITROGEN (BUN) 53 mg/dL (9-23)
[2017-10-20 08:24] VITALS: BP 127/67
[2017-10-20 15:30] VITALS: BP 144/72
[2017-10-20 23:34] VITALS: BP 167/70
[2017-10-21 08:01] VITALS: BP 153/70
[2017-10-21 16:00] VITALS: BP 159/74
[2017-10-21 23:50] VITALS: BP 110/65
[2017-10-22 07:42] VITALS: BP 183/81
[2017-10-22 09:51] LABS: INTER. NORMALIZED RATIO 1.7
[2017-10-22 15:24] VITALS: BP 136/63
[2017-10-23] VITALS: BP 133/71
[2017-10-23 07:01] VITALS: BP 129/64
[2017-10-23 08:50] LABS: INTER. NORMALIZED RATIO 1.5
[2017-10-23 11:52] LABS: BASOPHIL (%) 0.8 % (0-1); BASOPHIL COUNT 0.1 K/uL (0-0.1); EOSINOPHIL (%) 2.8 % (0-5); EOSINOPHIL COUNT 0.2 K/uL (0-0.3); HEMATOCRIT 27.2 % (38.0-50.0); HEMOGLOBIN 8.5 G/DL (12.5-16.6); IMMATURE GRANULOCYTE (%) 0.3 % (0.0-0.7); LYMPHOCYTE (%) 32.2 % (15-42); LYMPHOCYTE COUNT 2.8 K/uL (1.0-2.8); MCH 28.6 PG (29.0-34.0); MCHC 31.3 G/DL (30.0-36.0); MCV 91.6 FL (86-99); MONOCYTE (%) 11.6 % (3-12); NEUTROPHIL (%) 52.3 % (45-76); NEUTROPHIL COUNT 4.5 K/uL (1.8-6.4); PLATELET COUNT 750 K/uL (156-360); RBC DIS.WIDTH-CV 18.7 % (11.8-14.6); RBC DIS.WIDTH-SD 62.1 % (39-53); RED BLOOD COUNT 2.97 M/uL (4.00-5.50); WHITE BLOOD COUNT 8.6 K/uL (4.1-10.2)
[2017-10-23 12:10] LABS: CHLORIDE 97 MEQ/L (99-109); CREATININE 1.1 MG/DL (0.6-1.3); GFR ESTIMATE (CALCULATED) > 59 mL/min/ (58.99-99999); GLUCOSE 73 mg/dL (70-99); POTASSIUM 4.9 MEQ/L (3.7-5.4); SODIUM 134 MEQ/L (136-147); UREA NITROGEN (BUN) 57 mg/dL (9-23)
[2017-10-23 15:12] VITALS: BP 118/69
[2017-10-24] VITALS (10 sets, daily range): BP systolic 105–160; BP diastolic 53–75
[2017-10-24 06:34] LABS: INTER. NORMALIZED RATIO 1.8
[2017-10-24 13:21] LABS: GLUCOSE 695 mg/dL (70-99)
[2017-10-24 15:27] LABS: CREATININE 1.3 MG/DL (0.6-1.3); GFR ESTIMATE (CALCULATED) > 59 mL/min/ (58.99-99999); UREA NITROGEN (BUN) 46 mg/dL (9-23)
[2017-10-24 15:33] LABS: CHLORIDE 87 MEQ/L (99-109); SODIUM 121 MEQ/L (136-147)
[2017-10-24 15:50] LABS: GLUCOSE 1015 mg/dL (70-99); POTASSIUM 6.2 MEQ/L (3.7-5.4)
[2017-10-24 16:30] LABS: BASOPHIL (%) 0.4 % (0-1); EOSINOPHIL (%) 0.7 % (0-5); HEMATOCRIT 28.8 % (38.0-50.0); HEMOGLOBIN 9.1 G/DL (12.5-16.6); IMMATURE GRANULOCYTE (%) 0.4 % (0.0-0.7); LYMPHOCYTE (%) 15.6 % (15-42); LYMPHOCYTE COUNT 0.9 K/uL (1.0-2.8); MCH 29.4 PG (29.0-34.0); MCHC 31.6 G/DL (30.0-36.0); MCV 92.9 FL (86-99); MONOCYTE COUNT 0.2 K/uL (0-0.8); NEUTROPHIL (%) 78.9 % (45-76); NEUTROPHIL COUNT 4.4 K/uL (1.8-6.4); PLATELET COUNT 721 K/uL (156-360); RBC DIS.WIDTH-CV 19.2 % (11.8-14.6); RBC DIS.WIDTH-SD 65.2 % (39-53); WHITE BLOOD COUNT 5.5 K/uL (4.1-10.2)
[2017-10-24 18:38] LABS: GLUCOSE 709 mg/dL (70-99)
[2017-10-24 19:56] LABS: CHLORIDE 92 MEQ/L (99-109)
[2017-10-24 20:01] LABS: POTASSIUM 4.8 MEQ/L (3.7-5.4); SODIUM 129 MEQ/L (136-147)
[2017-10-24 20:02] LABS: CREATININE 1.2 MG/DL (0.6-1.3); GFR ESTIMATE (CALCULATED) > 59 mL/min/ (58.99-99999); PHOSPHORUS 4.1 mg/dL (2.5-4.9); UREA NITROGEN (BUN) 48 mg/dL (9-23)
[2017-10-24 20:03] LABS: GLUCOSE 740 mg/dL (70-99)
[2017-10-24 20:05] LABS: GLUCOSE 740 mg/dL (70-99)
[2017-10-25] VITALS (17 sets, daily range): BP systolic 97–170; BP diastolic 50–97
[2017-10-25 01:40] LABS: CHLORIDE 102 MEQ/L (99-109); GFR ESTIMATE (CALCULATED) > 59 mL/min/ (58.99-99999); GLUCOSE 118 mg/dL (70-99); PHOSPHORUS 4.7 mg/dL (2.5-4.9); POTASSIUM 4.1 MEQ/L (3.7-5.4); SODIUM 138 MEQ/L (136-147); UREA NITROGEN (BUN) 46 mg/dL (9-23)
[2017-10-25 05:44] LABS: CHLORIDE 103 MEQ/L (99-109); POTASSIUM 4.1 MEQ/L (3.7-5.4); SODIUM 138 MEQ/L (136-147)
[2017-10-25 05:49] LABS: INTER. NORMALIZED RATIO 2.9
[2017-10-25 05:52] LABS: GFR ESTIMATE (CALCULATED) > 59 mL/min/ (58.99-99999); GLUCOSE 108 mg/dL (70-99); PHOSPHORUS 4.4 mg/dL (2.5-4.9); UREA NITROGEN (BUN) 41 mg/dL (9-23)
[2017-10-25 09:11] LABS: CHLORIDE 103 MEQ/L (99-109); CREATININE 0.9 MG/DL (0.6-1.3); GFR ESTIMATE (CALCULATED) > 59 mL/min/ (58.99-99999); PHOSPHORUS 3.6 mg/dL (2.5-4.9); POTASSIUM 4.1 MEQ/L (3.7-5.4); SODIUM 138 MEQ/L (136-147); UREA NITROGEN (BUN) 37 mg/dL (9-23)
[2017-10-25 09:12] LABS: GLUCOSE 198 mg/dL (70-99)
[2017-10-25 13:35] LABS: CHLORIDE 97 MEQ/L (99-109); CREATININE 0.9 MG/DL (0.6-1.3); GFR ESTIMATE (CALCULATED) > 59 mL/min/ (58.99-99999); GLUCOSE 504 mg/dL (70-99); PHOSPHORUS 3.2 mg/dL (2.5-4.9); POTASSIUM 5.2 MEQ/L (3.7-5.4); SODIUM 130 MEQ/L (136-147); UREA NITROGEN (BUN) 35 mg/dL (9-23)
[2017-10-25 16:36] LABS: CHLORIDE 91 MEQ/L (99-109); CREATININE 1.1 MG/DL (0.6-1.3); GFR ESTIMATE (CALCULATED) > 59 mL/min/ (58.99-99999); PHOSPHORUS 2.8 mg/dL (2.5-4.9); POTASSIUM 5.7 MEQ/L (3.7-5.4); SODIUM 125 MEQ/L (136-147); UREA NITROGEN (BUN) 42 mg/dL (9-23)
[2017-10-25 16:40] LABS: GLUCOSE 717 mg/dL (70-99)
[2017-10-25 23:28] LABS: GLUCOSE 705 mg/dL (70-99)
[2017-10-26] VITALS (13 sets, daily range): BP systolic 101–172; BP diastolic 52–80
[2017-10-26 02:52] LABS: CHLORIDE 94 mEq/L (99-109); SODIUM 129 mEq/L (136-147)
[2017-10-26 02:58] LABS: CREATININE 1.1 mg/dL (0.6-1.3); GFR ESTIMATE (CALCULATED) > 59 mL/min/ (58.99-99999); UREA NITROGEN (BUN) 48 mg/dL (9-23)
[2017-10-26 02:59] LABS: GLUCOSE 265 mg/dL (70-99); POTASSIUM 4.3 mEq/L (3.7-5.4)
[2017-10-26 06:27] LABS: INTER. NORMALIZED RATIO 2.4
[2017-10-26 06:31] LABS: CHLORIDE 96 MEQ/L (99-109); CREATININE 0.9 MG/DL (0.6-1.3); GFR ESTIMATE (CALCULATED) > 59 mL/min/ (58.99-99999); GLUCOSE 128 mg/dL (70-99); PHOSPHORUS 4.2 mg/dL (2.5-4.9); POTASSIUM 3.9 MEQ/L (3.7-5.4); SODIUM 129 MEQ/L (136-147); UREA NITROGEN (BUN) 43 mg/dL (9-23)
[2017-10-27] VITALS (11 sets, daily range): BP systolic 85–161; BP diastolic 56–86
[2017-10-27 06:00] LABS: CHLORIDE 102 MEQ/L (99-109); CREATININE 0.9 MG/DL (0.6-1.3); GFR ESTIMATE (CALCULATED) > 59 mL/min/ (58.99-99999); POTASSIUM 4.5 MEQ/L (3.7-5.4); UREA NITROGEN (BUN) 29 mg/dL (9-23)
[2017-10-27 06:07] LABS: GLUCOSE 54 mg/dL (70-99); SODIUM 136 MEQ/L (136-147)
[2017-10-27 06:19] LABS: INTER. NORMALIZED RATIO 2.1
[2017-10-28 04:44] VITALS: BP 150/70
[2017-10-28 06:49] LABS: INTER. NORMALIZED RATIO 2.1
[2017-10-28 08:20] VITALS: BP 146/68
[2017-10-28 10:30] VITALS: BP 142/66
[2017-10-28 12:12] LABS: HEMATOCRIT 28.4 % (38.0-50.0); HEMOGLOBIN 8.8 G/DL (12.5-16.6); MCH 29.1 PG (29.0-34.0); PLATELET COUNT 569 K/uL (156-360); RBC DIS.WIDTH-CV 19.4 % (11.8-14.6); RBC DIS.WIDTH-SD 67.3 % (39-53); RED BLOOD COUNT 3.02 M/uL (4.00-5.50); WHITE BLOOD COUNT 8.3 K/uL (4.1-10.2)
[2017-10-28 12:26] LABS: ALBUMIN 3.3 G/DL (3.2-4.8); ALKALINE PHOSPHATASE 201 IU/L (3-129); ALT (GPT) 222 IU/L (3-49); AST (GOT) 211 IU/L (2-34); CHLORIDE 100 MEQ/L (99-109); CREATININE 0.8 MG/DL (0.6-1.3); GFR ESTIMATE (CALCULATED) > 59 mL/min/ (58.99-99999); GLUCOSE 82 mg/dL (70-99); POTASSIUM 4.6 MEQ/L (3.7-5.4); SODIUM 134 MEQ/L (136-147); TOTAL BILIRUBIN 0.3 MG/DL (0.0-1.0); TOTAL PROTEIN 5.9 G/DL (6.4-8.3); UREA NITROGEN (BUN) 30 mg/dL (9-23)
[2017-10-28 16:08] VITALS: BP 140/62
[2017-10-28 19:26] VITALS: BP 140/70
[2017-10-28 23:22] VITALS: BP 142/67
[2017-10-29 04:23] VITALS: BP 146/76
[2017-10-29 06:04] LABS: BASOPHIL (%) 0.5 % (0-1); EOSINOPHIL (%) 6.4 % (0-5); EOSINOPHIL COUNT 0.6 K/uL (0-0.3); HEMATOCRIT 27.5 % (38.0-50.0); HEMOGLOBIN 8.6 G/DL (12.5-16.6); IMMATURE GRANULOCYTE (%) 0.5 % (0.0-0.7); LYMPHOCYTE COUNT 2.5 K/uL (1.0-2.8); MCHC 31.3 G/DL (30.0-36.0); MCV 92.6 FL (86-99); MONOCYTE (%) 8.6 % (3-12); MONOCYTE COUNT 0.7 K/uL (0-0.8); NEUTROPHIL COUNT 4.7 K/uL (1.8-6.4); PLATELET COUNT 535 K/uL (156-360); RBC DIS.WIDTH-CV 19.4 % (11.8-14.6); RBC DIS.WIDTH-SD 66.2 % (39-53); RED BLOOD COUNT 2.97 M/uL (4.00-5.50); WHITE BLOOD COUNT 8.6 K/uL (4.1-10.2)
[2017-10-29 06:29] LABS: CHLORIDE 95 MEQ/L (99-109); GFR ESTIMATE (CALCULATED) > 59 mL/min/ (58.99-99999); GLUCOSE 265 mg/dL (70-99); POTASSIUM 5.4 MEQ/L (3.7-5.4); SODIUM 129 MEQ/L (136-147); UREA NITROGEN (BUN) 37 mg/dL (9-23)
[2017-10-29 08:30] VITALS: BP 137/62
[2017-10-29 11:57] VITALS: BP 135/60
[2017-10-29 16:12] VITALS: BP 135/67
[2017-10-29 19:28] VITALS: BP 149/70
[2017-10-30] VITALS: BP 121/59
[2017-10-30 05:59] VITALS: BP 110/57
[2017-10-30 06:32] LABS: HEMATOCRIT 28.4 % (38.0-50.0); MCH 29.2 PG (29.0-34.0); MCHC 31.7 G/DL (30.0-36.0); MCV 92.2 FL (86-99); PLATELET COUNT 555 K/uL (156-360); RBC DIS.WIDTH-CV 19.3 % (11.8-14.6); RED BLOOD COUNT 3.08 M/uL (4.00-5.50); WHITE BLOOD COUNT 9.3 K/uL (4.1-10.2)
[2017-10-30 06:41] LABS: INTER. NORMALIZED RATIO 2.4
[2017-10-30 07:07] LABS: CHLORIDE 99 MEQ/L (99-109); CREATININE 1.1 MG/DL (0.6-1.3); GFR ESTIMATE (CALCULATED) > 59 mL/min/ (58.99-99999); POTASSIUM 4.8 MEQ/L (3.7-5.4); SODIUM 132 MEQ/L (136-147); UREA NITROGEN (BUN) 40 mg/dL (9-23)
[2017-10-30 07:09] LABS: GLUCOSE 91 mg/dL (70-99)
[2017-10-30 07:38] VITALS: BP 142/78
[2017-10-30] MEDS ORDERED: TAMSULOSIN HCL0.4 MG PO (11:18)
[2017-10-30] MEDS ORDERED: SODIUM CHLORIDE1 G1 PO (11:19)
[2017-10-30] MEDS ORDERED: COUMADIN1 MG PO (11:19)
[2017-10-30] MEDS ORDERED: LANTUS 10100 UNITS/ SC (11:21)
[2017-10-30 12:00] VITALS: BP 138/72
== END 2017-10-30 14:42 | disposition home health service (06) | DRG 475 ==
LOC: EME 20:25 → RME 20:25 → EDOF 10-11 03:58 → 5SOUTH 10-11 03:58 → ENRESERV 10-11 04:00 → 5SOUTH 10-11 06:02 → ENRESERV 10-24 16:07 → 5SOUTH 10-24 16:07 → ENRESERV 10-24 16:53 → 4WEST 10-24 17:05 → ENRESERV 10-27 12:20 → 3EAST 10-27 14:05
PROVIDERS: Emergency Medicine; Hospitalist; Internal Medicine Critical Care Medicine; Physician Assistant; Physician Assistant Medical; Specialist; Student in an Organized Health Care Education/Training Program; Surgery
PROC: 30233K1 Transfusion of Nonautologous Frozen Plasma into Peripheral Vein, Percutaneous Approach (ICD-10-PCS; principal; 2017-10-11)
PROC: 0Y6C0Z3 Detachment at Right Upper Leg, Low, Open Approach (ICD-10-PCS; principal; 2017-10-11)
DX: T87.43 Infection of amputation stump, right lower extremity (principal); Y83.5 Amputation of limb(s) as the cause of abnormal reaction of the patient, or of later complication, without mention of misadventure at the time of the procedure; E10.10 Type 1 diabetes mellitus with ketoacidosis without coma; T38.3X1A Poisoning by insulin and oral hypoglycemic [antidiabetic] drugs, accidental (unintentional), initial encounter; E10.52 Type 1 diabetes mellitus with diabetic peripheral angiopathy with gangrene; N17.9 Acute kidney failure, unspecified; E87.5 Hyperkalemia; E87.1 Hypo-osmolality and hyponatremia; E10.649 Type 1 diabetes mellitus with hypoglycemia without coma; F05 Delirium due to known physiological condition; I48.91 Unspecified atrial fibrillation; G62.9 Polyneuropathy, unspecified; E86.0 Dehydration; L03.115 Cellulitis of right lower limb; I70.261 Atherosclerosis of native arteries of extremities with gangrene, right leg; R79.1 Abnormal coagulation profile; T45.515A Adverse effect of anticoagulants, initial encounter; R79.89 Other specified abnormal findings of blood chemistry; I12.9 Hypertensive chronic kidney disease with stage 1 through stage 4 chronic kidney disease, or unspecified chronic kidney disease; N18.2 Chronic kidney disease, stage 2 (mild); E10.22 Type 1 diabetes mellitus with diabetic chronic kidney disease; N99.89 Other postprocedural complications and disorders of genitourinary system; R33.8 Other retention of urine; R60.0 Localized edema; D63.8 Anemia in other chronic diseases classified elsewhere; J44.9 Chronic obstructive pulmonary disease, unspecified; E78.5 Hyperlipidemia, unspecified; K21.9 Gastro-esophageal reflux disease without esophagitis; R26.81 Unsteadiness on feet; M19.90 Unspecified osteoarthritis, unspecified site; R47.81 Slurred speech; G47.00 Insomnia, unspecified; R32 Unspecified urinary incontinence; F70 Mild intellectual disabilities; F43.23 Adjustment disorder with mixed anxiety and depressed mood; F63.9 Impulse disorder, unspecified; F17.210 Nicotine dependence, cigarettes, uncomplicated; Z89.511 Acquired absence of right leg below knee; Z86.718 Personal history of other venous thrombosis and embolism; Z91.19 Patient's noncompliance with other medical treatment and regimen; Z86.73 Personal history of transient ischemic attack (TIA), and cerebral infarction without residual deficits; Z79.01 Long term (current) use of anticoagulants; Z79.4 Long term (current) use of insulin; Z82.3 Family history of stroke; Z82.49 Family history of ischemic heart disease and other diseases of the circulatory system; Z83.3 Family history of diabetes mellitus
CPT/HCPCS: 36600; 73560; 80047; 80048; 80048 91; 80053; 80202; 81003; 82010; 82140; 82803; 82947 91; 82948; 83605; 83690; 83735; 83880; 83935; 84100; 84132 91; 84300; 84484; 84550; 84999; 85025; 85027; 85610; 85730; 86850; 86900; 86901; 87040; 87070; 87075; 87077; 87086; 87186; 87205; 87641; 88307; 92610 GN; 93005; 93971; 94640; 97530 GO; 97530 GP; 99281; 99285; J1170; J1630; J1650; J1815; J2270; J2543; J3010; J3370; J3430; J7030; J7050; J7120; P9017

== ENCOUNTER 2018-01-02 12:20 | Emergency (ER) | payer OTHER ==
[~2018-01-02] VITALS: Ht 162.6 cm; Wt 68.2 kg
[~2018-01-02 12:20] MED LIST changes: +COUMADIN1 MG PO; +SODIUM CHLORIDE1 G1 PO; +TAMSULOSIN HCL0.4 MG PO
[2018-01-02 12:51] LABS: HEMATOCRIT 41.9 % (38.0-50.0); HEMOGLOBIN 13.9 G/DL (12.5-16.6); MCH 27.7 PG (29.0-34.0); MCHC 33.2 G/DL (30.0-36.0); MCV 83.6 FL (86-99); PLATELET COUNT 525 K/uL (156-360); RBC DIS.WIDTH-CV 14.2 % (11.8-14.6); RBC DIS.WIDTH-SD 43.2 % (39-53); RED BLOOD COUNT 5.01 M/uL (4.00-5.50); WHITE BLOOD COUNT 12.5 K/uL (4.1-10.2)
[2018-01-02 12:59] LABS: ALBUMIN 3.7 g/dL (3.2-4.8); CHLORIDE 101 mEq/L (99-109); POTASSIUM 4.9 mEq/L (3.7-5.4); SODIUM 137 mEq/L (136-147)
[2018-01-02 13:01] LABS: GLUCOSE 318 mg/dL (70-99)
[2018-01-02 13:02] LABS: TOTAL PROTEIN 8.3 g/dL (6.4-8.3)
[2018-01-02 13:03] LABS: TOTAL BILIRUBIN 0.2 mg/dL (0.0-1.0)
[2018-01-02 13:05] LABS: ALKALINE PHOSPHATASE 189 IU/L (3-129); CREATININE 1.2 mg/dL (0.6-1.3); GFR ESTIMATE (CALCULATED) > 59 mL/min/ (58.99-99999)
[2018-01-02 13:06] LABS: UREA NITROGEN (BUN) 16 mg/dL (9-23)
[2018-01-02 13:07] LABS: AST (GOT) 19 IU/L (2-34)
[2018-01-02 13:08] LABS: ALT (GPT) 7 IU/L (3-49)
[2018-01-02] MEDS ORDERED: CLEOCIN300 MG PO (14:06)
[2018-01-02 15:01] VITALS: BP 147/89
== END 2018-01-02 15:02 | disposition left against medical advice (07) ==
LOC: EME 12:20 → EDOF 13:54 → EME 13:54 → ENRESERV 13:56 → CANRESERV 13:56
PROVIDERS: Internal Medicine
DX: S91.302A Unspecified open wound, left foot, initial encounter (principal); X58.XXXA Exposure to other specified factors, initial encounter; E11.9 Type 2 diabetes mellitus without complications; I10 Essential (primary) hypertension; Z79.4 Long term (current) use of insulin; Z89.611 Acquired absence of right leg above knee; Z86.73 Personal history of transient ischemic attack (TIA), and cerebral infarction without residual deficits; F17.200 Nicotine dependence, unspecified, uncomplicated; Z53.20 Procedure and treatment not carried out because of patient's decision for unspecified reasons
CPT/HCPCS: 73630; 80053; 82948; 85027; 87040; 99281; 99285